=== PATIENT | male | born 1935 | race Caucasian/White ===

== ENCOUNTER → 2019-04-04 | Outpatient (CLI) | payer OTHER ==
[~2019-04-04] MED LIST: ALBU2.5V14 NEB; ASPI325T8 PO; BUDE10.2 IH; BUPIVACAINE MPF 0.25% 10 ML VIAL. ONE; CARB15DR3 EACHEYE; CHOL10003 PO; IOHEXOL 180 MG/ML 10 ML VIAL. ONE; LIDO700A21 TP; LOSA100T14 PO; MELO15TA23 PO; METO100T7 PO; MULT1TAB52 PO; PRED1TAB3 PO; methylPREDNISolone ACETATE 40 MG/ML VIAL. ONE; methylPREDNISolone ACETATE 80 MG/ML VIAL. ONE
--- NOTE | 2019-04-04 14:36 | PAIN ---
DATE OF SERVICE: 04/04/2019 INITIAL CONSULTATION FOR PAIN CLINIC CHIEF COMPLAINT: Low back pain. HISTORY OF PRESENT ILLNESS: This is an 83-year-old male who presents with history of pain in the low back after lifting a lawnmower about 6 months ago in his garden, this was a riding mower, he was picking up and moving, has some significant pain in the low back at that time. The patient has since [facility] of the lumbar spine showing a 40% compression fracture deformity at the inferior endplate of L1 that was not present on for scan of the abdomen in 10/2018. The patient reports significant pain, but the pain is the low back and bilaterally, slightly worse on the right than the left with bending, picking up things, better with sitting or lying down, does not bother him at all. Does not awaken his from sleep. Reports only when he is bending or stooping or lifting something that it has caused the pain in the hips posteriorly not in the back as much. The patient reports it is constant, sharp, stabbing, throbbing, aching at times, worse with activity, changing positions and bending. The patient reports he has tried physical therapy without significant improvement. The patient does not awaken her from sleep at night, does not affect his bowel or bladder control, but does affect his ability to walk. After about 10-15 minutes, he has to stop and rest then the pain does decrease after that time. The patient reports no radiation currently into the lower extremities. The patient rates his disability rating from 0-10, 10 being the worst, an 8 with family home responsibilities and 5 with recreation activities, 0 with all other activities and categories. The patient has not tried any current medications except [id number] anti-inflammatories, which helped to a mild extent, but only very temporarily. PAST MEDICAL HISTORY: Significant for COPD, hearing loss, cigarette smoking, continues to smoke; hypertension; Crohn's disease; arthritis. PREVIOUS HISTORY: Previous surgeries include pacemaker placement, lumbar surgery and bowel resection for Crohn's disease. CURRENT MEDICATIONS: Include lidocaine patch daily, aspirin, prednisone 1 mg, pramoxine topical, Ensure, multivitamins, metoprolol, albuterol, camphor, carboxymethylcellulose eyedrops, lidocaine eyedrops, losartan, meloxicam, metoprolol and budesonide inhaler. ALLERGIES: The patient has no known drug allergies. FAMILY HISTORY: Significant for no major medical problems or conditions that he is aware of. SOCIAL HISTORY: The patient continues to smoke 1 pack a day of cigarettes, does not drink alcohol, does not use any illegal, illicit or recreational drugs. He is , lives with his spouse. No children living at home and lives locally in [place], [place] and reports he is currently retired. REVIEW OF SYSTEMS: The patient's review of systems is positive for those items mentioned in the history of present illness. All systems reviewed and otherwise negative. It is complete, full and well documented on the patient's chart. PHYSICAL EXAMINATION: VITAL SIGNS: The patient's blood pressure is 137/94, pulse 75, respirations 18, temperature is 98.3 degrees Fahrenheit, height is 6 feet, weight is 148 pounds. GENERAL: The patient is awake, alert, oriented, appropriate, very pleasant demeanor. HEENT: Shows normocephalic, atraumatic. Extraocular movements are intact and symmetrical. Oral cavity: Mucous membranes moist and pink. Dentition is intact. NECK: Shows anterior throat supple without palpable lymphadenopathy noted. Swallow reflex symmetrical. CHEST: Shows normal on inspection. Breath sounds clear to auscultate bilaterally. HEART: Shows S1, S2 clear. No murmurs auscultated. ABDOMEN: Soft, nontender, nondistended. The patient does have a slight left inguinal hernia, which is palpable, but only very mildly tender and only on the left side. Right side shows a well-healed surgical scar from repair. BACK: The patient's back shows spine grossly in the midline. Slight exaggeration of thoracic kyphosis and minor flattening of lumbar lordotic curvature. Well-healed surgical scars noted in the lumbar distribution. With palpation over the spinous processes shows no significant tenderness whatsoever throughout the lower thoracic and upper and middle and lower lumbar spinous processes. Paraspinous muscle shows symmetrical on inspection, on palpation shows some moderate tenderness diffusely, but only diffusely without significant radiation as well in the bilateral paraspinous muscles. No tenderness over the spinous processes, but sacroiliac regions however are significantly tender over the posterior superior iliac spine as well as the superior, middle part of the sacroiliac regions especially on the right side, very significantly tender even with moderate palpation. Left side is moderately tender with palpation. EXTREMITIES: The patient's lower extremities show deep tendon reflexes at 1+ in the patellar and tendo calcaneus tendons. Motor exam is 5/5 with dorsiflexion, extension, quadriceps and hamstring flexion and symmetrical. Peripheral pulses are 1+ in the posterior tibia. No peripheral edema is noted. Lower extremities are warm and dry to touch, equal in color and appearance. Straight leg raise noted to be negative for reproduction of any radicular symptoms bilaterally. Nabeel's maneuvers are negative. Gaenslen's are mildly positive on the right side, but negative on the left with external rotation and posterior displacement of the left hip and leg over the side of the bed, significantly tender on the right, but only very minimally on the left. The patient is able to stand, has difficulty standing on his toes, he loses balance, is walking with a slight shuffling gait, does not appear to favor the right or left lower extremity significantly with ambulation, not using any assistive devices such as canes or walkers with him in the office today. SKIN: Shows warm and dry, good turgor. No edema. No sores, rashes or bruising throughout. IMPRESSION: 1. This is an 83-year-old male with approximate 6-month history of increasing pain, low back bilaterally, right greater than left consistent with findings of sacroiliitis. 2. CT scan of lumbar spine as noted with compression fracture at L1. 3. Arthritis. 4. Hypertension. 5. Crohn's disease. 6. COPD. 7. Hearing loss. PLAN: Options were discussed with the patient including conservative medical managements, physical therapies and interventional procedure and interventional techniques. We discussed bilateral sacroiliac joint injection using description as well as anatomical models to describe the procedure. The patient would like to proceed. Risks were then discussed including, but not limited to bleeding, infection, possibility of intravascular injection sequelae, spread of local anesthetic and numbness, side effects of steroid medication, exposure to fluoroscopy and poor results regarding pain control. The patient understands and wished to proceed. The patient will return to clinic in approximately 2 weeks for followup. He was counseled on return appointment, activity level and side effects to be aware of. DIAGNOSIS: Bilateral sacroiliitis. PROCEDURE: Bilateral sacroiliac joint injections under C-arm fluoroscopic guidance using sterile prep and drape using local anesthetic. MEDICATION INJECTED: Total of 120 mg Depo-Medrol plus total of 4 mL of 0.25% bupivacaine and 3 mL of contrast. CONDITION AT DISCHARGE: Stable. The patient tolerated the procedure well, had no complications. KRISHNA LAZCANO MD DR: MARIA DEL ROSARIO/bacilio JOB#: [id number] / [id number]
== END ==
LOC: PNCL 09:47
PROVIDERS: ATTEND Anesthesiology
DX: M46.1 Sacroiliitis, not elsewhere classified (principal); J44.9 Chronic obstructive pulmonary disease, unspecified; H91.90 Unspecified hearing loss, unspecified ear; F17.210 Nicotine dependence, cigarettes, uncomplicated; I10 Essential (primary) hypertension; K50.90 Crohn's disease, unspecified, without complications; Z95.0 Presence of cardiac pacemaker; Z90.49 Acquired absence of other specified parts of digestive tract; Z98.890 Other specified postprocedural states; Z79.82 Long term (current) use of aspirin
CPT/HCPCS: G0260; J1030; J1040; J3490; Q9965; 27096

== ENCOUNTER → 2019-04-18 | Outpatient (CLI) | payer OTHER ==
--- NOTE | 2019-04-18 14:11 | PAIN ---
DATE OF SERVICE: 04/18/2019 DIAGNOSES: 1. Bilateral sacroiliitis. 2. Compression fracture L1. HISTORY OF PRESENT ILLNESS: The patient is an 83-year-old male who returns for followup status post bilateral sacroiliac joint injection. The patient reports about 90% improvement, after the first 4-5 days, the pain is beginning to return now, still not back to baseline, but still becoming more noticeable. He took a long car ride about 300 miles just a few days after his last injection and reports that the pain began to return somewhat more noticeable after that. The patient reports his pain is 6 on a scale of 10 at its worst over the past week, 5 on average and a 5 at its least and is aching, sharp, constant, aching in the back, worse with changing positions, sitting for prolonged periods. Does not awaken him from sleep often, but the patient reports no new motor or sensory deficits. Initially, he was doing good with greater distance walking, doing work activities, household activities, traveling with greater ease and comfort. PHYSICAL EXAMINATION: VITAL SIGNS: The patient's blood pressure 88/61, pulse 73, respirations 20, temperature 97.4 degrees Fahrenheit, weight is 146 pounds. GENERAL: The patient is awake, alert, oriented, appropriate, very pleasant demeanor. HEENT: Head is normocephalic, atraumatic. Extraocular movements are intact and symmetrical. Oral cavity: Mucous membranes moist and pink. Dentition is intact. NECK: Shows anterior throat supple without palpable lymphadenopathy noted. Swallow reflex symmetrical. CHEST: Shows normal on inspection. Breath sounds are clear bilaterally. HEART: Shows S1, S2 clear. No murmurs auscultated. ABDOMEN: Soft, nontender, nondistended. No palpable organomegaly is noted. No rebound or guarding demonstrated. BACK: Shows spine grossly in the midline, slight exaggerated thoracic kyphosis, some minor flattening of lumbar lordotic curvature. Lumbar paraspinous muscle shows symmetrical on inspection, with palpation shows some moderate tenderness, but only diffusely without radiation. The patient's sacroiliac region shows moderate tenderness in the posterior superior iliac spine and over the sacroiliac region themselves, slightly more on the right than the left, but present and tender bilaterally. EXTREMITIES: The patient's lower extremities show deep tendon reflexes 1+ in the patellar and tendo calcaneus tendons. Motor exam is strong with 5/5 dorsiflexion, extension, quadriceps and hamstring flexion. Gaenslen's maneuver, however, is positive bilaterally, worse on the right with more pain with external rotation of the hip and posterior displacement of the lower leg, more tender on the right side than the left, but tender bilaterally. Peripheral pulses are 1+ posterior tibia. No peripheral edema is noted. Options were discussed with the patient. The patient's old chart was reviewed as his current medication regimen updated. Current review of systems updated today as well. We will proceed with the bilateral sacroiliac joint injection today with fluoroscopic guidance. Risks were again discussed including, but not limited to bleeding, infection, possibility of intravascular injection sequelae, spread of local anesthetic and numbness, side effects of steroid medication, exposure to fluoroscopy and poor results regarding pain control. The patient understands and wished to proceed. The patient will return to the clinic in approximately 2 weeks for followup. He was counseled on return appointment, activity level and side effects to be aware of. DIAGNOSIS: Bilateral sacroiliitis. PROCEDURE: Bilateral sacroiliac joint injections using C-arm fluoroscopic guidance under sterile prep and drape using local anesthetic. MEDICATION INJECTED: Total of 80 mg Depo-Medrol, 40 mg per side, total of 4 mL of 0.25% bupivacaine, 2 mL per side and 3 mL of contrast 1.5 mL per side. CONDITION AT DISCHARGE: Stable. The patient tolerated procedure well, had no complications. KRISHNA LAZCANO MD DR: MARIA DEL ROSARIO/bacilio JOB#: [id number] / [id number]
== END ==
LOC: PNCL 09:41
PROVIDERS: ATTEND Anesthesiology
DX: M46.1 Sacroiliitis, not elsewhere classified (principal); M48.56XA Collapsed vertebra, not elsewhere classified, lumbar region, initial encounter for fracture
CPT/HCPCS: G0260; J1040; J3490; Q9965; J1030; 27096

== ENCOUNTER → 2019-05-16 | Outpatient (CLI) | payer OTHER ==
[~2019-05-16] MED LIST changes: -BUPIVACAINE MPF 0.25% 10 ML VIAL. ONE
--- NOTE | 2019-05-16 12:54 | PAIN ---
DATE OF SERVICE: 05/16/2019 PROGRESS NOTE FOR PAIN CLINIC DIAGNOSES: 1. Bilateral sacroiliitis. 2. Compression fracture at L1. 3. Lumbar radiculopathy with lumbar degenerative disk disease. HISTORY OF PRESENT ILLNESS: The patient is an 83-year-old male who returns for followup status post bilateral sacroiliac joint injections x 2, most recently 04/18/2019. The patient reports he did well, but only for a few days after the injection. The patient reports significant pain returning in the low back and the bilateral posterior hips, worse with walking, standing, even after about 10 minutes of standing or walking, the pain is significant enough for him that he must sit down and rest. The patient reports it is a 9 on a scale of 10 at its worst over the past week, 6 on average, 5 at its least and is a 5 today. The patient reports it is aching, sharp, again better with sitting or lying down, generally does not awaken him from sleep at night, but can occasionally, but not every night. The patient reports no new motor or sensory deficits, no new changes somewhat frustrated that the pain keeps returning. PHYSICAL EXAMINATION: VITAL SIGNS: The patient's blood pressure 124/81, pulse 75, respirations 18, temperature is 98.7 degrees Fahrenheit, height is 6 feet, weight is 148 pounds. GENERAL: The patient is awake, alert, oriented, appropriate, very pleasant demeanor. HEENT: Head shows normocephalic, atraumatic. Extraocular movements are intact and symmetrical. Oral cavity: Mucous membranes moist and pink. Dentition is intact. NECK: Shows anterior throat supple without palpable lymphadenopathy noted. Swallow reflex symmetrical. CHEST: Shows normal on inspection. Breath sounds are clear bilaterally. HEART: Shows S1, S2 clear. No murmurs auscultated. ABDOMEN: Soft, nontender, nondistended. No palpable organomegaly is noted. No rebound or guarding demonstrated. BACK: Shows spine grossly in the midline. Normal appearing thoracic kyphosis and flattening of lumbar lordotic curvature. Lumbar paraspinous muscle shows symmetrical on inspection, on palpation shows some moderate tenderness diffusely bilaterally going diffusely without significant radiation. The patient has a well-healed surgical scar noted. The patient has good rotational motion of lumbar spine, both laterally greater than 10 degrees right and left as well as extension greater than 10 degrees, forward flexion 45 degrees without significant increase in pain in any of these rotational movements. The patient's sacroiliac region shows significant tenderness over the posterior superior iliac spines, but also into the sacroiliac regions bilaterally with some significant tenderness with palpation bilaterally. EXTREMITIES: The patient's lower extremities show deep tendon reflexes at 1+ in the patellar and tendo-calcaneus tendons. Motor exam is strong with 5/5 dorsiflexion, extension, quadriceps and hamstring flexion and symmetrical. Peripheral pulses are 1+. No peripheral edema is noted. PLAN: Options were discussed with the patient. The patient's old chart was reviewed as his current medication regimen updated. Current review of systems updated today as well. We will proceed with a lumbar epidural steroid injection today with fluoroscopic guidance. Risks were again discussed including, but not limited to bleeding, infection, possibility of epidural hematoma, subsequent neurological compromise, dural puncture, headaches, spinal cord and/or nerve damage, side effects of steroid medication and poor results regarding pain control. The patient understands and wished to proceed. The patient will return to clinic in approximately 2 weeks for followup. He was counseled as to return appointment, activity level and side effects to be aware of. DIAGNOSES: Lumbar radiculopathy with lumbar degenerative disk disease. PROCEDURE: Lumbar epidural steroid injection, translaminar approach L5-S1 level using C-arm fluoroscopic guidance under sterile prep and drape using local anesthetic. MEDICATION INJECTED: A total of 120 mg Depo-Medrol plus 10 mL of preservative-free normal saline and 2 mL of contrast. CONDITION AT DISCHARGE: Stable. The patient tolerated the procedure well, had no complications. KRISHNA LAZCANO MD DR: MARIA DEL ROSARIO/bacilio JOB#: [id number] / [id number]
== END ==
LOC: PNCL 10:36
PROVIDERS: ATTEND Anesthesiology
DX: M51.16 Intervertebral disc disorders with radiculopathy, lumbar region (principal); M46.1 Sacroiliitis, not elsewhere classified; M48.56XA Collapsed vertebra, not elsewhere classified, lumbar region, initial encounter for fracture
CPT/HCPCS: 62323; J1030; J1040; Q9965

== ENCOUNTER → 2019-05-30 | Outpatient (CLI) | payer OTHER ==
--- NOTE | 2019-05-30 12:37 | PAIN ---
DATE OF SERVICE: 05/30/2019 PROGRESS NOTE FOR PAIN CLINIC DIAGNOSES: 1. Bilateral sacroiliitis. 2. Compression fracture of L1. 3. Lumbar radiculopathy with lumbar degenerative disk disease. HISTORY OF PRESENT ILLNESS: The patient is an 83-year-old male who returns for followup status post bilateral sacroiliac joint injections as well as lumbar epidural steroid injection on his last visit. The patient reports he is doing much better after the lumbar epidural steroid injection ____ pain in the right side and right hip has become significantly decreased. He was increasing activity with greater distance walking, doing household activities with much greater ease and comfort, traveling with greater ease as well as sleeping better at night, does not awaken him from sleep. The patient reports the left side is no longer painful and the right side still has some pain in the low back, posterior gluteus, posterior thigh, radiating to the posterior calf at times with walking and standing, but much better than it was. The patient reports no new motor or sensory deficits, no new bowel or bladder incontinence. He rates his pain as 7 on a scale of 10 at its worst over the past week, 5 on average, 5 at its least, and is a 5 today. PHYSICAL EXAMINATION: VITAL SIGNS: The patient's blood pressure 130/86, pulse 76, respirations 18, temperature 97.6 degrees Fahrenheit, height is 6 feet, weight is 145 pounds. GENERAL: The patient is awake, alert, oriented, appropriate, very pleasant demeanor. HEENT: Shows normocephalic, atraumatic. Extraocular movements are intact and symmetrical. Oral cavity: Mucous membranes moist and pink. Dentition is intact. NECK: Shows anterior throat is supple without palpable lymphadenopathy noted. Swallow reflex symmetrical. CHEST: Shows normal on inspection. Breath sounds are clear bilaterally. HEART: Shows S1, S2 clear. No murmurs auscultated. ABDOMEN: Soft, nontender, and nondistended. No palpable organomegaly is noted. No rebound or guarding demonstrated. BACK: Shows spine grossly in the midline. Normal-appearing thoracic kyphosis and some minor flattening of lumbar lordotic curvature. Lumbar paraspinous muscle shows symmetrical on inspection. Palpation shows some moderate tenderness diffusely in the low lumbar distribution, more on the right than the left, but good rotational motion is maintained both laterally as well as extension and flexion without difficulty. No tenderness over the sacrum. Mild tenderness over the posterior superior iliac spine on the right only, but not the left. EXTREMITIES: Lower extremities show deep tendon reflexes 1+ in the patellar and tendo-calcaneus tendons. Motor exam is strong with 5/5 dorsiflexion, extension, quadriceps and hamstring flexion symmetrical. Peripheral pulses are 1+ posterior tibial. No peripheral edema is noted. Options were discussed with the patient and the patient's spouse who accompanies him this visit today. We will proceed with a second lumbar epidural steroid injection today with fluoroscopic guidance. Risks were again discussed including, but not limited to bleeding, infection, possibility of epidural hematoma, subsequent neurological compromise, dural puncture, headaches, spinal cord and/or nerve damage, side effects of steroid medication, and poor results regarding pain control. The patient understands and wished to proceed. The patient will return to clinic in approximately 2 weeks for followup. He was counseled as to return appointment, activity level, and side effects to be aware of. DIAGNOSIS: Lumbar radiculopathy with lumbar degenerative disk disease. PROCEDURE: Lumbar epidural steroid injection, translaminar approach at L5-S1 level using C-arm fluoroscopic guidance under sterile prep and drape using local anesthetic. MEDICATION INJECTED: A total of 120 mg Depo-Medrol plus 10 mL of preservative-free normal saline and 2 mL of contrast. CONDITION AT DISCHARGE: Stable. The patient tolerated procedure well, had no complications. KRISHNA LAZCANO MD DR: MARIA DEL ROSARIO/bacilio JOB#: [id number] / [id number]
== END | disposition home or self-care (01) ==
LOC: PNCL 11:01
PROVIDERS: ATTEND Anesthesiology
DX: M51.16 Intervertebral disc disorders with radiculopathy, lumbar region (principal); M46.1 Sacroiliitis, not elsewhere classified; S32.019D Unspecified fracture of first lumbar vertebra, subsequent encounter for fracture with routine healing; Z98.890 Other specified postprocedural states; X58.XXXD Exposure to other specified factors, subsequent encounter
CPT/HCPCS: 62323; J1030; J1040; Q9965

== ENCOUNTER → 2019-08-22 | Outpatient (CLI) | payer OTHER ==
[~2019-08-22] MED LIST changes: +BUPIVACAINE MPF 0.25% 10 ML VIAL. ONE; +GABA600T7 PO; -methylPREDNISolone ACETATE 40 MG/ML VIAL. ONE
--- NOTE | 2019-08-22 23:32 | PAIN ---
DATE OF SERVICE: 08/22/2019 PROGRESS NOTE FOR PAIN CLINIC DIAGNOSES: 1. Bilateral sacroiliitis. 2. Compression fracture of L1. 3. Lumbar radiculopathy with lumbar degenerative disk disease. HISTORY OF PRESENT ILLNESS: The patient is an 84-year-old male who returns for followup status post right sacroiliac joint injection as well as lumbar epidural steroid injections in the past. The patient reports he did very well for about 3 weeks after the last injection with pain returning now over the past week or so in the right side of the low back, some on the left side, but mostly on the right side. The patient reports it is a 3 on a scale of 10 at all times, average, worst and least over the past week and is a 3/10 today. The patient reports it is aching and dull, worse with walking, standing, changing positions, especially with standing up from a seated position, but he has been increasing his distance walking with greater ease and comfort, sleeping well at night, it does not awaken him from sleep. The patient reports no new motor or sensory deficits and has significant decrease in pain about 75% improvement and it is still currently 75% improved. PHYSICAL EXAMINATION: VITAL SIGNS: The patient's blood pressure is 135/92, pulse 83, respirations 16, temperature 97.3 degrees Fahrenheit, weight is 154 pounds. GENERAL: The patient is awake, alert, oriented, appropriate, very pleasant demeanor. The patient is accompanied by his spouse. HEENT: Shows normocephalic, atraumatic. Extraocular movements are intact and symmetrical. Oral cavity: Mucous membranes moist and pink. Dentition is intact. NECK: Shows anterior throat supple without palpable lymphadenopathy noted. Swallow reflex symmetrical. CHEST: Shows normal on inspection. Breath sounds are clear bilaterally. HEART: Shows S1, S2 clear. No murmurs auscultated. ABDOMEN: Soft, nontender, nondistended. The patient shows easily palpable pacemaker in the left subclavicular region. BACK: Shows grossly midline spine. Lumbar paraspinous muscle shows symmetrical on inspection, with palpation shows some moderate tenderness diffusely, only diffusely without significant radiation in the lumbar paraspinous muscles. The patient has full rotational motion of lumbar spine, both laterally as well as extension and flexion without significant increase in pain or difficulty. The patient's posterior superior iliac spine shows significant tenderness over the inferior aspect of the posterior iliac spine on the right side and also in the superior and medial area of the sacroiliac joint on the right only. Left side is only very mildly tender with deep palpation. EXTREMITIES: The patient's lower extremities show deep tendon reflexes 1+ in the patellar and tendo calcaneus tendons. Motor exam is strong with 5/5 dorsiflexion, extension, quadriceps and hamstring flexion. Peripheral pulses are 1+ posterior tibia. No peripheral edema is noted. PLAN: Options were discussed with the patient. The patient's old chart was reviewed as his current medication regimen updated. Current review of systems updated today as well and we will proceed with right-sided sacroiliac joint injection today with fluoroscopic guidance. Risks were again discussed including, but not limited to bleeding, infection, possibility of intravascular injection sequelae, spread of local anesthetic and numbness, side effects of steroid medication, exposure to fluoroscopy and poor results regarding pain control. The patient understands and wished to proceed. The patient will return to clinic in approximately 2 weeks for followup. He was counseled on his return appointment, activity level and side effects to be aware of. DIAGNOSIS: Right-sided sacroiliitis. PROCEDURE: Right sacroiliac joint injection using C-arm fluoroscopic guidance under sterile prep and drape using local anesthetic. MEDICATION INJECTED: A total of 80 mg of Depo-Medrol plus 2 mL of 0.25% bupivacaine after negative aspiration and 1.5 mL of contrast. CONDITION AT DISCHARGE: Stable. The patient tolerated the procedure well, had no complications. KRISHNA LAZCANO MD DR: MARIA DEL ROSARIO/bacilio JOB#: [id number] / [id number]
== END ==
LOC: PNCL 10:55
PROVIDERS: ATTEND Anesthesiology
DX: M46.1 Sacroiliitis, not elsewhere classified (principal); M51.16 Intervertebral disc disorders with radiculopathy, lumbar region; M48.56XA Collapsed vertebra, not elsewhere classified, lumbar region, initial encounter for fracture
CPT/HCPCS: 27096; J1040; J3490; Q9965

== ENCOUNTER → 2019-11-21 | Outpatient (CLI) | payer OTHER ==
--- NOTE | 2019-11-21 10:24 | PAIN ---
DATE OF SERVICE: 11/21/2019 PROGRESS NOTE FOR PAIN CLINIC DIAGNOSES: 1. Bilateral sacroiliitis. 2. Lumbar radiculopathy with lumbar degenerative disk disease. HISTORY OF PRESENT ILLNESS: The patient is an 84-year-old male who returns for followup status post right sacroiliac joint injection on 08/22/2019. The patient did very well with this with about a 50% improvement overall. The patient reports the left side is still doing much better. He has had sacroiliac joint injections on both sides in the past, but has done very well with the left side. The right side is still fairly significantly painful with occasional pain shooting into the right leg and posterior gluteus and thigh as well as the calf, but only very rarely. The patient reports his pain is in the right posterior hip region, described as a 7 on a scale of 10 at its worst, average and least and is a 7 at all times and is a 7 today. The patient reports it can be sharp, constant, dull and aching. The patient reports it generally does not awaken him from sleep at night. It is worse with walking, standing, changing positions, especially standing from a seated position, but is not awakening him from sleep. The patient reports no new motor or sensory deficits, no new bowel or bladder incontinence. Initially, he was doing much better with distance walking, also changing positions, doing household activities and traveling with greater ease. PHYSICAL EXAMINATION: VITAL SIGNS: The patient's blood pressure 119/70, pulse 75, respirations 18, temperature 98.2 degrees Fahrenheit, height is 6 feet, weight is 152 pounds. GENERAL: The patient is awake, alert, oriented, appropriate, very pleasant demeanor. HEENT: Shows normocephalic, atraumatic. Extraocular movements are intact and symmetrical. The patient wears eyeglasses. Oral cavity shows mucous membranes are moist and pink. Dentition is intact. NECK: Shows anterior throat is supple without palpable lymphadenopathy noted. Swallow reflex symmetrical. CHEST: Shows inspection. Breath sounds are clear bilaterally. HEART: Shows S1, S2 clear. No murmurs auscultated. ABDOMEN: Soft, nontender, nondistended. No palpable organomegaly is noted. No rebound or guarding demonstrated. BACK: Shows spine grossly in the midline, slightly exaggerated thoracic kyphosis and minor flattening of lumbar lordotic curvature. Lumbar paraspinous muscle shows symmetrical on inspection, on palpation shows some moderate tenderness bilaterally, but only diffusely in the low and mid lumbar distribution. Muscles are symmetrical without evidence of atrophy, hypertrophy and no radiation of pain is demonstrated. The patient's right sacroiliac joint shows significant tenderness with palpation over the posterior superior iliac spine as well as inferior to this in the sacroiliac joint itself. Left side is only very mildly tender. EXTREMITIES: The patient's lower extremities show deep tendon reflexes 1+ in the patellar and tendo calcaneus tendons. Motor exam is strong with 5/5 dorsiflexion, extension, quadriceps and hamstring flexion symmetrical. Peripheral pulses are 1+ posterior tibia. No peripheral edema is noted. The patient does have a positive Gaenslen's maneuver on the right side with the patient external rotation of the right hip and leg with displacement posteriorly with significant pain in the sacroiliac joint itself on the right, but the left side is negative. Options were discussed with the patient. The patient's old chart was reviewed as his current medication regimen updated. Current review of systems updated today as well. We will proceed with a right sided sacroiliac joint injection today with fluoroscopic guidance. Risks were again discussed including, but not limited to bleeding, infection, possibility of intravascular injection, sequelae, spread of local anesthetic and numbness, side effects of steroid medication, exposure to fluoroscopy and poor results regarding pain control. The patient understands and wished to proceed. The patient will return to clinic in approximately 2 weeks for followup. He was counseled on return appointment, activity level and side effects to be aware of. DIAGNOSIS: Right sacroiliitis. PROCEDURE: Right sacroiliac joint injection using C-arm fluoroscopic guidance under sterile prep and drape using local anesthetic. MEDICATION INJECTED: A total of 3 mL of 0.25% bupivacaine, 80 mg of Depo-Medrol and 2 mL of contrast. CONDITION AT DISCHARGE: Stable. The patient tolerated the procedure well and had no complications. KRISHNA LAZCANO MD DR: MARIA DEL ROSARIO/bacilio JOB#: [id number] / [id number]
== END ==
LOC: PNCL 08:44
PROVIDERS: ATTEND Anesthesiology
DX: M46.1 Sacroiliitis, not elsewhere classified (principal); M51.16 Intervertebral disc disorders with radiculopathy, lumbar region
CPT/HCPCS: G0260; J1040; J3490; Q9965; 77002; 27096

== ENCOUNTER → 2019-12-08 | Outpatient (CLI) | payer OTHER ==
[~2019-12-08] MED LIST changes: +MULT-445 PO; -MULT1TAB52 PO
--- NOTE | 2019-12-08 11:53 | PAIN ---
DATE OF SERVICE: 12/08/2019 PROGRESS NOTE FOR PAIN CLINIC DIAGNOSES: 1. Bilateral sacroiliitis. 2. Compression fracture at L4. 3. Lumbar radiculopathy with lumbar degenerative disk disease. HISTORY OF PRESENT ILLNESS: The patient is an 84-year-old male who returns for followup status post right sacroiliac joint injection on 11/21/2019. The patient reports about 8-9 days of near 100% relief and the pain began to return gradually in the right low back. The patient reports some pain across the low back as well, but mainly in the right side in the posterior hip. The patient reports no new motor or sensory deficits or other complaints, but he is doing much better with increased distance walking, doing household activities with much greater ease and comfort and traveling with greater ease and comfort as well during the first 9 days or so. The patient reports his pain has returned now, it is about an 8 on a scale of 10 at its worst over the past few days, 6 on average, 5 at its least and is a 6 today. The patient reports no new motor or sensory deficits. Describes the pain as sharp, alternating with dull in the low back on the right side, worse with walking, standing, changing positions, especially getting up from a seated position, but generally does not awaken him from sleep at night. PHYSICAL EXAMINATION: VITAL SIGNS: The patient's blood pressure 120/87, pulse 85, respirations 18, temperature 97.4 degrees Fahrenheit, height is 6 feet, weight is 148 pounds. GENERAL: The patient is awake, alert, oriented, appropriate, very pleasant demeanor. HEENT: Shows normocephalic, atraumatic. Extraocular movements are intact and symmetrical. Oral cavity shows mucous membranes moist and pink. Dentition is intact. NECK: Shows anterior throat supple without palpable lymphadenopathy noted. Swallow reflex symmetrical. CHEST: Shows normal on inspection. Breath sounds are clear bilaterally. HEART: Shows S1, S2 clear. No murmurs auscultated. ABDOMEN: Soft, nontender, nondistended. BACK: Shows spine grossly in the midline. Normal appearing thoracic kyphosis and minor flattening of lumbar lordotic curvature. Lumbar paraspinous muscle shows symmetrical on inspection, with palpation shows some moderate tenderness in the low lumbar distribution only, but without asymmetry and no trigger points, no radiation of pain. The patient has good rotational motion of lumbar spine, both laterally as well as extension and flexion without difficulty. There is significant tenderness over the posterior superior iliac spine on the right, but not the left and over the right sacroiliac region as well with significant pain with palpation. The patient does have a positive Gaenslen's maneuver on the right side as well, but negative on the left. Peripheral pulses are 1+ posterior tibial. EXTREMITIES: Lower extremities show deep tendon reflexes 1+ in the patellar tendons. Motor exam is strong with 5/5 dorsiflexion and extension. Options were discussed with the patient. The patient's old chart was reviewed as his current medication regimen updated. Current review of systems updated today as well. We will proceed with a right sided sacroiliac joint injection today with fluoroscopic guidance. Risks were again discussed including, but not limited to bleeding, infection, possibility of intravascular injection sequelae, spread of local anesthetic and numbness, side effects of steroid medication and poor results regarding pain control. The patient understands and wished to proceed. The patient will return to clinic in approximately 2 weeks for followup. He was counseled as to return appointment, activity level and side effects to be aware of. DIAGNOSIS: Right sacroiliitis. PROCEDURE: Right sacroiliac joint injection using C-arm fluoroscopic guidance under sterile prep and drape using local anesthetic. MEDICATION INJECTED: A total of 80 mg Depo-Medrol plus 3 mL of 0.25% bupivacaine, 1.5 mL of contrast. CONDITION AT DISCHARGE: Stable. The patient tolerated procedure well, had no complications. KRISHNA LAZCANO MD DR: MARIA DEL ROSARIO/bacilio JOB#: [id number] / [id number]
== END ==
LOC: PNCL 10:33
PROVIDERS: ATTEND Anesthesiology
DX: M46.1 Sacroiliitis, not elsewhere classified (principal); M51.16 Intervertebral disc disorders with radiculopathy, lumbar region; M48.56XA Collapsed vertebra, not elsewhere classified, lumbar region, initial encounter for fracture
CPT/HCPCS: 27096; J1040; J3490; Q9965

== ENCOUNTER → 2020-01-08 | Outpatient (CLI) | payer OTHER ==
--- NOTE | 2020-01-08 12:13 | PAIN ---
DATE OF SERVICE: 01/08/2020 PROGRESS NOTE FOR PAIN CLINIC DIAGNOSES: 1. Bilateral sacroiliitis. 2. Compression fracture, L1 and L4. 3. Lumbar radiculopathy with lumbar degenerative disk disease. HISTORY OF PRESENT ILLNESS: The patient is an 84-year-old male who returns for followup status post right sacroiliac joint injection on 12/07. The patient reports it was helpful, but only for a few days and not as impressive decrease in pain, maybe 25% from his previous one, which was near 100% for about 8-9 days. The patient reports still on the right side as it was previously, posterior hip region. The patient reports it is worse with walking, standing, changing positions, also prolonged sitting, does not awaken him from sleep, however, better with lying down. The patient reports it is an 8 on a scale of 10 at its worst, 8 on average and a 7 at its least and is an 8 today. The patient reports it is constant and aching in the right side of the low back. No specific radiation to lower extremities at this time and will get that occasionally in the right groin and into the posterior gluteus and thigh, not any radiation recently. The patient reports no new motor or sensory deficits, no new bowel or bladder incontinence or other complaints. PHYSICAL EXAMINATION: VITAL SIGNS: The patient's blood pressure is 124/83, pulse 81, respirations 18, temperature 98.2 degrees Fahrenheit, height is 6 feet, weight is 151 pounds. GENERAL: The patient is awake, alert, oriented, appropriate, very pleasant demeanor. HEENT: Shows normocephalic, atraumatic. Extraocular movements are intact and symmetrical. Oral cavity: Mucous membranes moist and pink. Dentition is intact. NECK: Shows anterior throat supple. CHEST: Shows normal on inspection. No rales, rhonchi or wheezes auscultated. HEART: Shows S1, S2 clear. ABDOMEN: Soft, nontender, nondistended. BACK: Shows spine grossly in the midline. The patient shows some moderate decrease in lumbar curvature, lordosis and some moderate tenderness with palpation throughout the upper, middle and lower distribution of the paraspinous muscles. From the right side, the posterior superior iliac spine is significantly tender just medial to this region and into the superior aspect of the sacroiliac joint region on the right, but not the left. The patient has good rotational motion of the lumbar spine, both laterally as well as extension and flexion without difficulty. Lower extremities show deep tendon reflexes 1+ in the patellar and tendo calcaneus tendons. Motor exam is strong with 5/5 dorsiflexion, extension, quadriceps and hamstring flexion and symmetrical. The patient does have a mild Gaenslen's positive sign on the right side with posterior displacement of the lower extremity and external rotation of the right hip and negative on the left. Peripheral pulses are 1+ dorsalis pedis. No peripheral edema in the bilateral lower extremities is noted. Options were discussed with the patient. The patient's old chart was reviewed as his current medication regimen updated. Current review of systems updated today as well. We will proceed with a right-sided sacroiliac joint injection today with fluoroscopic guidance. Risks were discussed including but not limited to bleeding, infection, possibility of intravascular injection sequelae, spread of local anesthetic and numbness, side effects of steroid medication, exposure to fluoroscopy and poor results regarding pain control. The patient understands and wishes to proceed. The patient will return to clinic in approximately 2 weeks for followup. She was counseled on return appointment, activity level and side effects to be aware of. DIAGNOSIS: Right sacroiliitis. PROCEDURE: Right sacroiliac joint injection using C-arm fluoroscopic guidance under sterile prep and drape using local anesthetic. MEDICATION INJECTED: Total of 80 mg Depo-Medrol plus 3 mL of 0.25% bupivacaine and 1.5 mL of contrast. CONDITION AT DISCHARGE: Stable. The patient tolerated the procedure well, had no complications. KRISHNA LAZCANO MD DR: MARIA DEL ROSARIO/bacilio JOB#: [id number] / [id number]
== END | disposition home or self-care (01) ==
LOC: PNCL 10:59
PROVIDERS: ATTEND Anesthesiology
DX: M46.1 Sacroiliitis, not elsewhere classified (principal); M48.56XA Collapsed vertebra, not elsewhere classified, lumbar region, initial encounter for fracture; M51.16 Intervertebral disc disorders with radiculopathy, lumbar region
CPT/HCPCS: G0260; J1040; J3490; Q9965; 77002; 27096

== ENCOUNTER 2021-08-22 11:54 | Emergency (ER) | payer MEDICARE, OTHER ==
[~2021-08-22] VITALS: Ht 182.9 cm; Wt 67.1 kg
[~2021-08-22 11:54] MED LIST changes: -BUPIVACAINE MPF 0.25% 10 ML VIAL. ONE; -IOHEXOL 180 MG/ML 10 ML VIAL. ONE; -methylPREDNISolone ACETATE 80 MG/ML VIAL. ONE
--- NOTE | 2021-08-22 13:52 | PHYS DOC ---
Past Medical History Additional Past Medical Histor: HERNIA, chronic rash Past Surgical History: No Surgical History Smoking Status: Current Every Day Smoker Drug Use: None General Adult EDM: Chief Complaint: SKIN PROBLEM HPI: HPI: Patient is a 86 year old male who presents with worsening urticaria of a rash that has been present for 5 years. Patient states he receives care at the [facility], where he has seen several dermatologists. He is currently prescribed triamcinolone 0.1% cream, topical pramoxine cream and a 1mg daily prednisone tablet. Patient reports he has stopped taking the daily prednisone for a period of about 1 week, because he was unsure if it was "doing anything." He states he was so itchy last night that he had difficulty sleeping. Patient is unaware of any triggers to the rash, but it has been constant since onset 5 years ago. He states he sometimes scratches and breaks skin on his forearms. He denies any new symptomatology. Review of Systems: Review of Systems: Constitutional: Denies fever, chills or generalized weakness Eyes: Denies change in visual acuity, visual field deficits or discharge HENT: Denies ear pain, nasal congestion or sore throat Respiratory: Denies cough or shortness of breath Cardiovascular: Denies chest pain, palpitations or edema GI: Denies abdominal pain, nausea, vomiting, bloody stools or diarrhea : Denies dysuria or hematuria Musculoskeletal: Denies back pain or joint pain Integument: See HPI Neurologic: Denies headache, focal weakness or sensory changes Heart Score: C/O Chest Pain: No Allergies: Allergies: Allergies Coded Allergies Type Severity Reaction Last Updated Verified No Known Allergies Allergy Unknown 04/04/19 Yes Physical Exam: PE: Constitutional: Well developed, well nourished, no acute distress, non-toxic appearance. HENT: Normocephalic, atraumatic, bilateral external ears normal, nose normal. Eyes: EOMI, conjunctiva normal, no discharge. Neck: Normal range of motion, no stridor. Skin: Diffuse macular rash noted across essentially entire body (chest, abdomen, upper extremities, lower extremities, low back) with some visible areas of broken skin and bruising secondary to reported scratching. Extremities: No tenderness, no cyanosis, no clubbing, ROM intact, no edema. Neurologic: Alert and oriented x4, no focal deficits noted. Current Patient Data: Vital Signs: Vital Signs Date Time Temp Pulse Resp B/P (MAP) Pulse Ox O2 Delivery O2 Flow Rate FiO2 08/22/21 11:54 97.9 79 17 160/85 (110) 98 Room Air 97.9 144/85 BP while in exam room @ 1340 Course & Med Decision Making: Course & Med Decision Making Pertinent Labs and Imaging studies reviewed. (See chart for details) 86-year-old male with 5-year history of chronic urticarial rash presents with increased itchiness. Patient has not taken his prescribed prednisone for about 1 week. Patient will be given p.o. dexamethasone and Benadryl to relieve his symptoms. Patient is advised to follow with dermatology and resume his prednisone prescription as directed. All the patient's questions were answered. He understands and is agreeable to discharge plan. Dragon Disclaimer: Dragon Disclaimer: This electronic medical record was generated, in whole or in part, using a voice recognition dictation system. Departure Departure Impression: Primary Impression: Chronic idiopathic urticaria Additional Impression: Hx of primary hypertension Disposition: HOME / SELF CARE / HOMELESS Condition: STABLE Referrals: NO PCP (PCP) Patient Instructions: Rash, [id number] Additional Instructions: EMERGENCY DEPARTMENT GENERAL DISCHARGE INSTRUCTIONS Thank you for coming to [facility] Emergency Department (ED) today and trusting us with you care. We trust that you had a positive experience in our Emergency Department. If you wish to speak to the department management, you may call the director at . YOUR FOLLOW UP INSTRUCTIONS ARE FOLLOWS: 1. Follow up with your primary care doctor. If you do not have a primary doctor, please ask for a resource list of physicians or clinics that may be able to assist you with follow up care. 2. The emergency provider has interpreted your imaging studies, if any were ordered. The radiology rn imaging also reviewed them. If there is a change in the findings, you will be notified in 48 hours when at all possible. 3. If a lab test or culture has been done, your results will be reviewed and you will be notified if you need a change in treatment. 4. Resume your prescribed medications and take them as directed. Follow instructions verbalized to you and refer to the printouts if needed. ADDITIONAL INSTRUCTIONS AND INFORMATION: 1. Your care today has been supervised by a physician who is specially trained in emergency care. Many problems require more than one evaluation for a complete diagnosis and treatment. We recommend that you schedule your follow up appointment as recommended to ensure complete treatment of you illness or injury. If you are unable to obtain follow up care and continue to have a problem, or if your condition worsens, we recommend that you return to the ED. 2. We are not able to safely determine your condition over the phone nor are we able to give sound medical advice over the phone. For these safety reasons, if you call for medical advice we will ask you to come to the ED for further evaluation. 3. If you have any questions regarding these discharge instructions please call the ED at . SAFETY INFORMATION: In the interest of safety, wellness, and injury prevention; we encourage you to wear your seat belt, if you smoke; quite smoking, and we encourage family to use a protective helmet for bicycling and other sporting events that present an increased risk for head injury. IF YOUR SYMPTOMS WORSEN OR NEW SYMPTOMS DEVELOP, OR YOU HAVE CONCERNS ABOUT YOUR CONDITION; OR IF YOUR CONDITION WORSENS WHILE YOU ARE WAITING FOR YOUR FOLLOW UP APPOINTMENT; EITHER CONTACT YOUR PRIMARY CARE DOCTOR, THE PHYSICIAN WHOSE NAME AND NUMBER YOU WERE GIVEN, OR RETURN TO THE ED IMMEDIATELY. NAIMA PITT Aug 22, 2021 13:52
[2021-08-22] MEDS ORDERED: DEXAMETHASONE 4 MG TABLET PO ONE (14:00)
[2021-08-22] MEDS ORDERED: diphenhydrAMINE HCL 25 MG CAPSULE PO ONE (14:00)
[2021-08-22 15:14] VITALS: BP 123/93
== END 2021-08-22 15:12 | disposition home or self-care (01) ==
LOC: ER 11:54
DX: L50.1 Idiopathic urticaria (principal); I10 Essential (primary) hypertension; F17.200 Nicotine dependence, unspecified, uncomplicated
CPT/HCPCS: 99283; Q0163